=== PATIENT | male | born 1955 | race Caucasian/White ===

== ENCOUNTER 2022-09-27 15:41 | Emergency (ER) | payer OTHER, SELFPAY ==
--- NOTE | ~2022-09-27 | XR_ITS ---
EXAM: XR hand LT min 3V DATE: 09/27/2022 17:27 HISTORY: deep laceration to middle finger . COMPARISON: None available. FINDINGS: Normal mineralization. No fracture or dislocation. No lytic or blastic lesion. Mild scatte red degenerative changes. No erosion or periosteal change. Soft tissue laceration along the proximal and medial aspect of the middle finger. IMPRESSION: No acute osseous finding in the left hand. Reviewed, dictated and finalized at location K. [facility] [employer]
[2022-09-27 16:36] VITALS: BP 161/92; PULSE 73; RESP 20; TEMP 36.4; O2SAT 96
--- NOTE | 2022-09-27 17:40 | ED.WOUNDLAC ---
HPI - Wound/Laceration General Chief Complaint: Wound/Laceration Stated Complaint: L MIDDLE FINGER LACERATION Time Seen by Provider: 09/27/22 17:10 History of Present Illness HPI narrative: 67-year-old male presents to the emergency room for evaluation of laceration to the base of his left middle finger. Patient states that he was attempting to open a bottle, when the bottle broke cutting his finger. Denies any joint laxity or numbness and tingling distal to the injury. States his tetanus needs to be updated. No other injuries. Related Data Allergies Allergy/AdvReac Type Severity Reaction Status Date / Time Penicillins Allergy Nausea and Verified 09/27/22 18:13 Vomiting Review of Systems Review of Systems: CONSTITUTIONAL: Denies fever, chills, or sweats. EYES: Denies visual changes, redness, or discharge. ENT: Denies rhinorrhea, congestion, sore throat, or otalgia. CARDIOVASCULAR: Denies chest pain, palpitations, or edema. RESPIRATORY: Denies cough or dyspnea. GASTROINTESTINAL: Denies abdominal pain, nausea, vomiting, or diarrhea. GENITOURINARY: Denies dysuria or hematuria. SKIN: Reports laceration to left middle finger MUSCULOSKELETAL: Denies back pain, joint pain, or myalgia. NEUROLOGIC: Denies headache, numbness, dizziness, or weakness. PSYCHIATRIC: Denies anxiety or depression. Exam Narrative: GENERAL: Well-appearing, well-nourished, no physical limitations, and in no acute distress. HEAD: Normocephalic, atraumatic. EYES: Conjunctivae normal, PERRLA and EOMI. CHEST: Clear to auscultation. No respiratory distress. No wheezes rales or rhonchi. HEART: Regular rate and rhythm. No murmur heard. Normal peripheral pulses. EXTREMITIES: Normal range of motion. No edema. No clubbing or cyanosis SKIN: left middle finger: 4.5 cm laceration to medial and posterior aspects of the base, neurovascular is intact distally NEURO: No focal deficits. Alert and oriented x3. MAEW. CN's II-XI intact bilaterally, normal gait PSYCH: Cooperative. Normal mood and affect. Course Vital Signs Vital signs: Vital Signs Temperature 36.4 C L 09/27/22 16:36 Pulse Rate 73 09/27/22 16:36 Respiratory Rate 20 09/27/22 16:36 Blood Pressure 161/92 H 09/27/22 16:36 Pulse Oximetry 96 09/27/22 16:36 Oxygen Delivery Room Air 09/27/22 16:36 Temperature 36.4 C L 09/27/22 16:36 Pulse Rate 73 09/27/22 16:36 Respiratory Rate 20 09/27/22 16:36 Blood Pressure 161/92 H 09/27/22 16:36 Pulse Oximetry 96 09/27/22 16:36 Oxygen Delivery Room Air 09/27/22 16:36 Procedures Laceration Laceration 1: Date: 09/27/22 Time: 18:11 Site: hand Side (If applicable): left Size (cm): 4.5 Description: linear Depth: simple, single layer Local Anesthetic: lidocaine 1% Amount of anesthesia used (mL): 6 Pre-repair: irrigated ====== Skin Level ====== Skin layer closed with: nylon Size (cm): 4-0 Number of sutures: 9 Technique: simple, interrupted ====== Subcutaneous Layer ====== ====== Muscle Layer ====== ====== Tendon Layer ====== Discharge Plan Discharge Clinical Impression: Laceration Patient Disposition: Home, Self-Care Condition: Stable Instructions: Antibiotic Form, Laceration (ED) Additional Instructions: Sutures come out in 10 days. Monitor for signs of infection which include redness, swelling, tenderness and purulent drainage. Keep wound clean and covered and dry. Prescriptions: New sulfamethoxazole-trimethoprim [Bactrim DS] 800-160 mg tablet 1 tablet PO Q12H 7 Days Qty: 14 0RF Follow-up/Referrals: Julianne,Brijesh Hardwick MD [Primary Care Provider] - Time of Disposition: 18:13
--- NOTE | 2022-09-27 17:48 | PC.NURSE ---
EDP at bedside to complete the laceration repair.
[2022-09-27] MEDS: TETANUS,DIPHTHERIA,AC PERTUSSIS ADULT (0.5 ML) BOOSTRIX IM (18:15)
[2022-09-27] MEDS: Please add drug allergy info to patient profile. 1 EACH XX (18:15)
[2022-09-27] MEDS: LIDOCAINE HCL 1% PF 30 ML VIAL 20 ML INFILTRATE (18:17)
[2022-09-27 18:46] VITALS: BP 154/76; PULSE 72; RESP 16; TEMP 36.7; O2SAT 98
== END 2022-09-27 18:48 | disposition home or self-care (01) ==
PROVIDERS: Emergency Provider Nurse Practitioner Family; PCP Internal Medicine
DX: S61.213A Laceration without foreign body of left middle finger without damage to nail, initial encounter (principal); Z23 Encounter for immunization; W25.XXXA Contact with sharp glass, initial encounter
CPT/HCPCS: 12002; 73130; 90471; 90715; 99283